=== PATIENT | female | born 1950 | race African-American/Black ===

== ENCOUNTER 2017-09-27 04:13 | Emergency (ER) | payer MEDICARE ==
[2017-09-27 05:08] LABS: ALT (SGPT) 126 U/L (8-55); AST (SGOT) 153 U/L (5-34); Albumin 4.2 g/dL (3.4-4.8); Alkaline Phosphatase 96 U/L (40-150); Anion Gap 16 mmol/L (10-20); BUN (Urea Nitrogen) 17 mg/dL (9.8-20.1); Bilirubin, Total 0.6 mg/dL (0.2-1.2); CK (CPK) 101 U/L (29-168); Calc. Creatinine Clearance 0 mL/min (70-130); Calcium 9.4 mg/dL (7.8-10.44); Carbon Dioxide 22 mmol/L (23-31); Chloride 110 mmol/L (98-107); Estimated GFR-MDRD 73; Glucose 138 mg/dL (80-115); Potassium 3.7 mmol/L (3.5-5.1); Protein, Total 7.2 g/dL (6.0-8.3); Sodium 144 mmol/L (136-145)
[2017-09-27 05:09] LABS: CKMB 1.7 ng/mL (0-6.6); Troponin I 0.022 ng/mL (< 0.028)
[2017-09-27 05:13] LABS: #Basophils 0.1 thou/uL (0.0-0.2); #Eosinphils 0.2 thou/uL (0.0-0.7); #Lymphocytes 1.4 thou/uL (1.20-3.40); #Monocytes 0.3 thou/uL (0.11-0.59); %Basophils 1.8 % (0.0-1.0); %Eosinophils 3.2 % (0.0-10.0); %Lymphocytes 27.7 % (21.0-51.0); %Monocytes 6.1 % (0.0-10.0); %Neutrophils 61.2 % (42.0-75.0); Hemoglobin 14.6 g/dL (12.0-16.0); Mean Corpuscular HGB CONC 31.6 g/dL (32.0-36.0); Mean Corpuscular Hemoglobin 29.7 pg (27.0-31.0); Mean Corpuscular Volume 93.8 fl (81.0-99.0); PLT Morphology Comment Appears Adequate; Platelet Count 196 thou/uL (130-400); RBC Distribution Width 11.9 % (11.5-14.5); RBC Morphology Normal; Red Blood Cell (RBC) Count 4.91 mill/uL (4.20-5.40); White Blood Cell (WBC) Count 4.9 thou/uL (4.8-10.8)
[2017-09-27] MEDS ORDERED: Furosemide 40 MG/4 ML VIAL ONE (05:52)
--- NOTE | 2017-09-27 08:18 | CT ---
PRELIMINARY REPORT/[facility]/EMERGENCY AFTER HOURS PROCEDURE: EXAM: CT Angiography Chest With Intravenous Contrast EXAM DATE/TIME: 09/27/2017 6:19 AM CLINICAL HISTORY: 67 years old, female; Pain; Chest pain; On breathing TECHNIQUE: Axial computed tomographic angiography images of the chest with intravenous contrast using pulmonary embolism protocol. All CT scans at this facility use one or more dose reduction techniques, viz.: aut omated exposure control; ma/kV adjustment per patient size (including targeted exams where dose is ma tched to indication; i.e. head); or iterative reconstruction technique. Coronal reformatted images were created and reviewed. CONTRAST: 95 mL of ISOVUE 370 administered intravenously. COMPARISON: No relevant prior studies available. FINDINGS: Pulmonary arteries: No dissection. No visualized embolism as characterized to the most proximal segme ntal level. Aorta: Calcification of the aorta. No thoracic aortic aneurysm. Lungs: Small sized right and left pleural effusions with mild basilar atelectasis. No mass. Pleural space: See above. Heart: Cardiomegaly. Severe left ventricular dilatation. Atrial dilatation. Cardiomegaly with reflux of contrast into the distended hepatic veins suggestive of right heart dysfunction. Correlate. No sig nificant pericardial effusion. Thyroid: Thyroid megaly particularly on the left with numerous thyroid nodules. Bones/joints: See above. Soft tissues: Unremarkable. Lymph nodes: Unremarkable. No enlarged lymph nodes. IMPRESSION: 1. No dissection. No visualized embolism as characterized to the most proximal segmental level. consi tessa alternative form of imaging if indicated. 2. Cardiomegaly. Severe left ventricular dilatation. Atrial dilatation. 3. Cardiomegaly with reflux of contrast into the distended hepatic veins suggestive of right heart dy sfunction. Correlate. 4. Small sized right and left pleural effusions with mild basilar atelectasis. Thank you for allowing us to participate in the care of your patient. Dictated and Authenticated by: Harley Perez MD 09/27/2017 7:25 AM Central Time ([place] & [place]) FINAL REPORT CT PULMONARY ANGIOGRAM WITH IV CONTRAST AND 3D POSTPROCESSING: Date: 09/27/17 FINDINGS/IMPRESSION: I agree with the preliminary report given by Dr. Harley Perez of [facility]. POS: [facility]
--- NOTE | 2017-09-27 08:42 | RAD ---
PORTABLE CHEST 1 VIEW: DATE: 09/27/17. TIME: 4:54 a.m. HISTORY: Dyspnea. FINDINGS/IMPRESSION: The heart size is borderline. The lungs are well expanded. No lobar consolidation, pneumothorax, or large effusions are seen. POS: [facility]
[2017-09-27] MEDS ORDERED: Iopamidol 370 76% 100 ML VIAL ONE (09:00)
== END 2017-09-27 09:30 | disposition short-term general hospital (02) ==
LOC: NAV ERS 04:13
DX: I11.0 Hypertensive heart disease with heart failure (principal); I50.41 Acute combined systolic (congestive) and diastolic (congestive) heart failure; E11.9 Type 2 diabetes mellitus without complications; E78.2 Mixed hyperlipidemia; F17.210 Nicotine dependence, cigarettes, uncomplicated; Z79.82 Long term (current) use of aspirin; Z79.899 Other long term (current) drug therapy
CPT/HCPCS: 71045; 71275; 80053; 82550; 82553; 83880; 84484; 85025; 85379; 87040; 87804; 93005; 94640; 94760; 96374; J1940; J7620

== ENCOUNTER 2019-06-02 18:31 | Emergency (ER) | payer MEDICARE ==
--- NOTE | 2019-06-02 19:42 | CT ---
CT Brain WO Con: 06/02/2019 7:03 PM CLINICAL HISTORY: Pain. COMPARISON: None. FINDINGS: Hemorrhage: None. Ventricular system: Normal in size and morphology for the patient's age. Cerebral parenchyma: Normal Midline shift: None. Mass: No mass effect. Calvarium: Normal. Visualized Paranasal sinuses: Scattered mild inflammatory mucosal thickening. IMPRESSION: No acute intracranial abnormalities.
== END 2019-06-02 19:54 | disposition home or self-care (01) ==
LOC: NAV ERS 18:31
DX: R51 Headache (principal); E11.9 Type 2 diabetes mellitus without complications; E78.5 Hyperlipidemia, unspecified; E87.1 Hypo-osmolality and hyponatremia; I10 Essential (primary) hypertension; F17.210 Nicotine dependence, cigarettes, uncomplicated; Z79.82 Long term (current) use of aspirin; Z79.891 Long term (current) use of opiate analgesic; Z79.899 Other long term (current) drug therapy
CPT/HCPCS: 70450